=== PATIENT | male | born 1960 | race Caucasian/White ===

== ENCOUNTER 2019-10-29 07:22 | Day surgery (SDC) | payer BC ==
[2019-10-24 16:24] VITALS: BMI 33.3
[2019-10-29 07:53] VITALS: TEMP 97.8
[2019-10-29] MEDS ORDERED: LIDOCAINE HCL/PF 2% SDV 5ML VIAL ONE (08:51)
[2019-10-29] MEDS ORDERED: PROPOFOL 20 ML ONE ×4 (08:51)
[2019-10-29 09:36] VITALS: BP 154/84; PULSE 70
--- NOTE | 2019-10-31 15:07 | PATH ---
Surgical Pathology Report Patient Name: ONEYDA MOORE [facility]. Rec. #: [id number] /Age/Gender: 1960 (Age: 59) / M Account: [id number] Location: [facility] Taken: 10/29/2019 Received: 10/29/2019 Reported: 10/31/2019 Physicians: Kelvin Landers M.D. Specimen(s) Received A: POLYP SIGMOID COLON B: POLYP RECTO SIGMOID COLON C: POLYP RECTUM Clinical History History of polyps Postoperative diagnosis: Colon polyp Final Diagnosis A. SIGMOID COLON, POLYP, BIOPSY: TUBULAR ADENOMA. B. RECTOSIGMOID COLON, POLYP, BIOPSY: SESSILE SERRATED POLYP. C. RECTUM, POLYP, BIOPSY: SESSILE SERRATED POLYP. Electronically Signed Purnima Gonzalez M.D. Gross Description A. Received in formalin, labeled "biopsy polyp sigmoid colon" is a hudson, irregular portion of soft tissue measuring 1.0 cm. in greatest dimension. The specimen is submitted in toto in one cassette. B. Received in formalin, labeled "biopsy polyp rectosigmoid colon" are 2 hudson, irregular portions of soft tissue measuring 0.2 and 0.5 cm. in greatest dimension. The specimens are submitted in toto in one cassette. C. Received in formalin, labeled "biopsy polyp rectum" is a hudson, irregular portion of soft tissue measuring 0.5 cm. in greatest dimension. The specimen is submitted in toto in one cassette. 10/30/2019 saudi10/30/2019
== END 2019-10-29 09:38 | disposition home or self-care (01) ==
LOC: FASU-ENDO 07:22
PROVIDERS: ATTEND Internal Medicine Gastroenterology
PROC: 0DBN8ZX Excision of Sigmoid Colon, Via Natural or Artificial Opening Endoscopic, Diagnostic (ICD-10-PCS; 2019-10-29)
PROC: 0DBP8ZX Excision of Rectum, Via Natural or Artificial Opening Endoscopic, Diagnostic (ICD-10-PCS; principal; 2019-10-29 08:54)
DX: Z86.010 Personal history of colon polyps (principal); D12.5 Benign neoplasm of sigmoid colon; K63.5 Polyp of colon; K62.1 Rectal polyp
CPT/HCPCS: 88305-TC

== ENCOUNTER 2022-10-23 10:40 | Day surgery (SDC) | payer BC ==
[2022-10-19 12:37] VITALS: BMI 34.9
[2022-10-23 11:08] VITALS: TEMP 97.8
[2022-10-23 13:16] VITALS: PULSE 75
[2022-10-23 13:35] VITALS: BP 142/80; RESP 20
== END 2022-10-23 13:45 | disposition home or self-care (01) ==
LOC: FASU-ENDO 10:40
PROVIDERS: ATTEND Internal Medicine Gastroenterology
PROC: 0DBM8ZX Excision of Descending Colon, Via Natural or Artificial Opening Endoscopic, Diagnostic (ICD-10-PCS; principal; 2022-10-23 12:46)
DX: Z12.11 Encounter for screening for malignant neoplasm of colon (principal); D12.4 Benign neoplasm of descending colon; Z86.010 Personal history of colon polyps
CPT/HCPCS: 88305-TC

== ENCOUNTER 2023-07-08 09:20 | Emergency (ER) | payer BC ==
[2023-07-08 09:28] VITALS: TEMP 97.7; BMI 34.0
[2023-07-08] MEDS ORDERED: LACTATED RINGERS SOLUTION 1000 ML INFUS.BAG IV ONE (09:40)
[2023-07-08] MEDS ORDERED: ACETAMINOPHEN INJECTION 100 ML IVPB ONE (10:14)
[2023-07-08 10:58] LABS: HEMOGLOBIN 15.7 G/dL (11.7-16.9); MCH 30.6 pg (25.7-33.7); MCHC 34.8 g/dl (32.0-35.9); MEAN CELL VOLUME 87.8 fl (80-96); MEAN PLT VOLUME 7.7 fl (7.5-11.1); PLATELET COUNT 212.4 10^3/uL (134-434); RBC 5.12 10^6/uL (4.00-5.60); RDW 14.1 % (11.9-15.9); WHITE BLOOD COUNT 6.3 10^3/uL (4.0-10.8)
[2023-07-08] MEDS ORDERED: ACETAMINOPHEN 1000 MG/100 ML BAG IVPB ONE (11:04)
[2023-07-08 11:16] LABS: ALBUMIN 4.4 g/dl (3.4-5.0); BLOOD UREA NITROGEN 15.5 mg/dl (7-18); CALCIUM 8.8 mg/dl (8.5-10.1); CREATININE 0.8 mg/dl (0.6-1.3); POTASSIUM 4.2 mmol/L (3.5-5.1); SGOT/AST 19.5 U/L (15-37); SGPT/ALT 19.4 U/L (7-52); TOT PROT 7.3 g/dl (6.4-8.2)
[2023-07-08 11:32] VITALS: BP 145/93; PULSE 74; RESP 18
[2023-07-08 11:32] LABS: PLATELET ESTIMATE ADEQUATE
[2023-07-08] MEDS ORDERED: MECLIZINE HCL 12.5 MG TABLET PO ONE (11:47)
[2023-07-08] MEDS ORDERED: MECLIZINE HCL 25 MG TABLET (FP) ONE (11:48)
[2023-07-08 12:31] LABS: BILIRUBIN,TOTAL 0.5 mg/dL (0.2-1)
== END 2023-07-08 13:35 | disposition home or self-care (01) ==
LOC: FER 09:20
PROC: 3E033NZ Introduction of Analgesics, Hypnotics, Sedatives into Peripheral Vein, Percutaneous Approach (ICD-10-PCS; principal; 2023-07-08)
DX: R42 Dizziness and giddiness (principal)
CPT/HCPCS: 36415; 71045-TC-FY; 80053; 82550; 82553; 84484; 85027; 93005; 99285-25